=== PATIENT | female | born 2000 | race Caucasian/White ===

== ENCOUNTER 2021-11-12 20:43 | Outpatient (CLI) | payer OTHER | END 2021-11-12 23:20 | disposition home or self-care (01) | LOC: GENOP 20:43 | DX: O99.891 Other specified diseases and conditions complicating pregnancy (principal); N89.8 Other specified noninflammatory disorders of vagina; O10.913 Unspecified pre-existing hypertension complicating pregnancy, third trimester; Z79.899 Other long term (current) drug therapy; Z3A.36 36 weeks gestation of pregnancy | CPT/HCPCS: 59025; 81001; 83518; 96360; 96361 ==

== ENCOUNTER 2021-11-26 05:36 | Inpatient (IN) | payer OTHER ==
[~2021-11-26] VITALS: Ht 167.6 cm; Wt 104.3 kg
[2021-11-26] MEDS ORDERED: KAPSPARGO SPRIN25 MG PO (06:19)
[2021-11-26 06:46] LABS: HEMOGLOBIN 11.5 gm/dl (12.3-15.3); RED BLOOD COUNT 4.04 M/UL (4.00-5.10); WHITE BLOOD COUNT 8.6 K/UL (4.5-11.0)
[2021-11-26] MEDS ORDERED: HYDROCODON-ACE1 EAC6 PO ×3 (09:27→09:34)
[2021-11-26] MEDS ORDERED: COLACE 100MG C100 MG PO ×2 (09:27→09:29)
[2021-11-26] MEDS ORDERED: IBUPROFEN600 MG PO ×2 (09:27→09:29)
[2021-11-27 07:19] LABS: HEMOGLOBIN 10.2 gm/dl (12.3-15.3)
[2021-11-27] MEDS ORDERED: HYDROCODON-ACE1 EAC6 PO (15:42)
== END 2021-11-27 16:48 | disposition home or self-care (01) | DRG 788 ==
LOC: OB 05:36
PROVIDERS: ADMIT Obstetrics & Gynecology
PROC: 4A1HXCZ Monitoring of Products of Conception, Cardiac Rate, External Approach (ICD-10-PCS; 2021-11-26)
PROC: 10D00Z1 Extraction of Products of Conception, Low, Open Approach (ICD-10-PCS; principal; 2021-11-26 07:30)
DX: O13.4 Gestational [pregnancy-induced] hypertension without significant proteinuria, complicating childbirth (principal); O99.214 Obesity complicating childbirth; Z20.822 Contact with and (suspected) exposure to COVID-19; E66.9 Obesity, unspecified; Z3A.38 38 weeks gestation of pregnancy; Z37.0 Single live birth; Z82.49 Family history of ischemic heart disease and other diseases of the circulatory system; O36.63X0 Maternal care for excessive fetal growth, third trimester, not applicable or unspecified; Z98.890 Other specified postprocedural states
CPT/HCPCS: 36415; 81001; 82800; 85014; 85018; 85025; C9113; J0690; J1650; J1885; J2274; J2370; J2405; J2590; J3010; J7120